=== PATIENT | female | born 1975 | race Caucasian/White ===

== ENCOUNTER 2017-11-07 09:50 | Emergency (ER) | payer OTHER, MEDICAID, SELFPAY ==
[2017-11-07 10:00] VITALS: BP 123/78; PULSE 102; RESP 20; TEMP 36.8; O2SAT 99
--- NOTE | 2017-11-07 10:03 | ED_ITS ---
HPI - Extremity Injury (Lower) General Chief Complaint: Extremity Injury, Lower Stated Complaint: left foot pain Time Seen by Provider: 11/07/17 10:03 Source: patient Mode of arrival: ambulatory Limitations: no limitations History of Present Illness HPI Narrative: Patient is a 42-year-old female with a known bone spur on her left heel. Has seen podiatry for this. Is scheduled for surgery later this month. Here for evaluation after she states that she ?stepped wrong ?on her left foot and since then has had pain on the bottom of her left foot that radiates up her left leg. Has not tried anything for prior to arrival. Does have lidocaine patches on her foot which she states is a daily medication for her. Related Data Home Medications Medication Instructions Recorded Confirmed alprazolam 1 tab PO DAILY PRN 11/07/17 11/07/17 brexpiprazole [Rexulti] 2 mg PO DAILY 11/07/17 11/07/17 carbamazepine 1 tab PO DAILY 11/07/17 11/07/17 dextroamphetamine-amphetamine 11/07/17 11/07/17 dextroamphetamine-amphetamine 30 mg PO QAM 11/07/17 11/07/17 divalproex 1 tab PO DAILY 11/07/17 11/07/17 divalproex 2 tab PO BEDTIME 11/07/17 11/07/17 etonogestrel-ethinyl estradiol 1 ea VAGINAL Q21D 11/07/17 11/07/17 [NuvaRing] levothyroxine 1 tab PO DAILY 11/07/17 11/07/17 losartan 1 tab PO DAILY 11/07/17 11/07/17 meloxicam 1 tab PO DAILY 11/07/17 11/07/17 omeprazole 2 cap PO DAILY 11/07/17 11/07/17 polyethylene glycol 3350 1 dose PO DAILY 11/07/17 11/07/17 trazodone 2 tab PO BEDTIME 11/07/17 11/07/17 valacyclovir 1 tab PO DAILY 11/07/17 11/07/17 Allergies Allergy/AdvReac Type Severity Reaction Status Date / Time codeine Allergy Unknown Unverified 06/11/17 12:31 hydrocodone Allergy Unknown Unverified 06/11/17 12:31 lamotrigine [From LAMICTAL] Allergy Unknown Unverified 06/11/17 12:31 propoxyphene Allergy Unknown Unverified 06/11/17 12:31 Review of Systems Constitutional Denies fever(s) Cardiovascular Denies chest pain and Denies dyspnea Respiratory Denies dyspnea Gastrointestinal Gastrointestinal: Denies abdominal pain Musculoskeletal Comments: Left foot pain Integumentary/Breasts Denies lesions and Denies rash Hematologic/Lymphatic Denies easy bleeding and Denies easy bruising COUNT INCLUDES THE [facility] Medical History Bone spur of left foot (Acute) Surgical History No pertinent past surgical history (Acute) Social History Smoking Status: Never smoker Exam Initial Vital Signs Initial Vital Signs: Vital Signs Temperature 98.3 F 11/07/17 10:00 Pulse Rate 102 H 11/07/17 10:00 Respiratory Rate 20 11/07/17 10:00 Blood Pressure 123/78 11/07/17 10:00 Pulse Oximetry 99 11/07/17 10:00 Const General: cooperative, healthy appearing, well developed, well groomed and No acute distress Orientation: alert, awake and oriented x3 HENRI Head: normal to inspection and normocephalic Resp Effort & Inspection: normal respiratory effort Skin Lesions: no lesions Rashes: no rashes Neuro General: alert and oriented x3 Other: Sensation intact to light touch left lower extremity Extrem Other: Left knee unremarkable Left lower leg unremarkable Left ankle unremarkable Tenderness to palpation the bottom left foot Psych Appearance: grossly normal and well kempt Course Orders Ordered: ED Orders 11/07/17 10:16 XR foot LT min 3V Stat Vital Signs - 8 hr 11/07/17 10:00 Temperature 98.3 F Pulse Rate 102 H Respiratory Rate 20 Blood Pressure 123/78 Pulse Oximetry 99 MDM - Extremity Injury (Lower) Imaging Data X-ray left foot: Radiologist's impression: PROCEDURE: XR FOOT LT MIN 3V INDICATIONS: pain after twisting this AM TECHNIQUE: 3 views of the foot were acquired. COMPARISON: None. FINDINGS: Bones: No fractures or dislocations. No suspicious bony lesions. Soft tissues: No tibiotalar joint effusion. Achilles tendon appears normal. IMPRESSION: No trauma found. Dictated by: Riley Gurrola M.D. on 11/07/2017 at 10:46 Approved by: Riley Gurrola M.D. on 11/07/2017 at 10:47 [facility] Narrative Medical decision making narrative: Patient is neurovascularly intact. No fractures on the x-ray. Does have follow up with her biology specialist. Will give crutches for comfort. No acute process was found. She was given return precautions. She expressed understanding and agreement with plan. Discharge Plan Departure Patient Disposition: Home Clinical Impression: Chronic pain in left foot Instructions: How to Use Crutches, How To Perform RICE (Rest, Ice, Compress, Elevate) Activity Restrictions/Additional Instructions: Keep all of your scheduled medical appointments. Keep her foot elevated and iced as much as possible. You can walk on your foot if needed but use the crutches for comfort. Return to the emergency department for any worsening symptoms. Prescriptions: No Action divalproex 250 mg tablet,delayed release (DR/EC) 2 tab PO BEDTIME RF: 0 divalproex 250 mg tablet,delayed release (DR/EC) 1 tab PO DAILY RF: 0 carbamazepine 100 mg tablet extended release 12 hr 1 tab PO DAILY RF: 0 valacyclovir 500 mg tablet 1 tab PO DAILY RF: 0 meloxicam 7.5 mg tablet 1 tab PO DAILY RF: 0 levothyroxine 88 mcg tablet 1 tab PO DAILY RF: 0 alprazolam 0.5 mg tablet 1 tab PO DAILY PRN (Reason: Anxiety) RF: 0 trazodone 100 mg tablet 2 tab PO BEDTIME RF: 0 losartan 25 mg tablet 1 tab PO DAILY RF: 0 omeprazole 20 mg capsule,delayed release(DR/EC) 2 cap PO DAILY RF: 0 dextroamphetamine-amphetamine 10 mg capsule,extended release 24hr RF: 0 dextroamphetamine-amphetamine 10 mg capsule,extended release 24hr 30 mg PO QAM RF: 0 polyethylene glycol 3350 17 gram/dose powder 1 dose PO DAILY RF: 0 etonogestrel-ethinyl estradiol [NuvaRing] 0.12-0.015 mg/24 hr ring 1 ea Vaginal Q21D RF: 0 brexpiprazole [Rexulti] 2 mg tablet 2 mg PO DAILY RF: 0 Stand Alone Forms: Work/School Restrictions
--- NOTE | 2017-11-07 10:16 | DI.RAD.S_ITS ---
PROCEDURE: XR FOOT LT MIN 3V INDICATIONS: pain after twisting this AM TECHNIQUE: 3 views of the foot were acquired. COMPARISON: None. FINDINGS: Bones: No fractures or dislocations. No suspicious bony lesions. Soft tissues: No tibiotalar joint effusion. Achilles tendon appears normal. IMPRESSION: No trauma found. Dictated by: Riley Gurrola M.D. on 11/07/2017 at 10:46 Approved by: Riley Gurrola M.D. on 11/07/2017 at 10:47
[2017-11-07 11:17] VITALS: BP 131/76; PULSE 84; RESP 16; O2SAT 100
== END 2017-11-07 11:31 | disposition home or self-care (01) ==
PROVIDERS: Emergency Provider Emergency Medicine
DX: M79.672 Pain in left foot (principal)
CPT/HCPCS: 73630; 99283

== ENCOUNTER → 2022-08-29 11:19 | Outpatient (CLI) | payer OTHER, SELFPAY ==
--- NOTE | 2022-08-29 | DI.MRI.S_ITS ---
PROCEDURE: MR ABDOMEN LIVER PROTOCOL INDICATIONS: Liver disease, unspecified. Biopsy of prior right liver mass with pathology result of hepatic adenoma. TECHNIQUE: Coronal HASTE, axial 2D FLASH in- and [id number]; axial breath-hold T2 FSE. Dynamic axial VIBE during the administration of contrast; post-contrast coronal VIBE or 2D FLASH with fat saturation from the hepatic dome to the iliac crests. Optional diffusion weighted imaging and ADC may be performed. COMPARISON: [facility], MR, MR ABDOMEN WITHOUT CONTRAST, 08/22/2021, 9:52. [facility], CT, CT BIOPSY LIVER, 09/26/2021, 8:51. FINDINGS: Lung bases: No pleural effusion. Liver: Redemonstrated mass at the posterior aspect of the right lobe measuring 3.5 x 3.4 cm (axial T2 haste series 4, image 18) previously 3.4 x 3.3 cm, not significantly changed in size, previously biopsied with result of hepatic adenoma. Microscopic lipid content appears decreased compared to the prior exam, unclear clinical significance. Solid organs: Gallbladder contains a large stone as before. Biliary system is non dilated. Pancreas is normal in morphology. Spleen is normal in size and enhancement. No adrenal nodules. Both kidneys demonstrate normal size and enhancement, without hydronephrosis. Nodes and vessels: No retroperitoneal or mesenteric adenopathy by size criteria. Aorta and inferior vena cava are normal in size. Bowel and peritoneum: Unenhanced bowel loops are normal in caliber. No free fluid. IMPRESSION: 1. No significant interval change in size of the previously demonstrated hepatic adenoma in hepatic segment 6. 2. Cholelithiasis. Dictated by: Rios Aleln M.D. on 08/30/2022 at 11:40 Approved by: Rios Allen M.D. on 08/30/2022 at 12:05
== END ==
PROVIDERS: PCP Nurse Practitioner Family; Referring Provider Internal Medicine Gastroenterology; Visit Provider Internal Medicine Gastroenterology
DX: D13.4 Benign neoplasm of liver (principal); K76.9 Liver disease, unspecified; K80.20 Calculus of gallbladder without cholecystitis without obstruction
CPT/HCPCS: 74183; A9579

== ENCOUNTER 2023-12-09 17:17 | Emergency (ER) | payer OTHER, SELFPAY ==
[2023-12-09] VITALS (12 sets, daily range): BP systolic 165–197; BP diastolic 76–96; PULSE 44–64; RESP 16–25; TEMP 36.3–36.9; O2SAT 94–100; BMI 36.8
--- NOTE | 2023-12-09 17:36 | EKG_ITS ---
[facility] [address] [address] Test Date: 2023-12-09 Pat Name: [facility] Department: 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
[2023-12-09 18:45] LABS: Add Manual Diff / Slide Review NO; Basophils Absolute Auto 0 /uL (0-100); Basophils Percent Auto 0.4 % (0-2); Eosinophils Absolute Auto 0 /uL (0-450); Hematocrit 35.8 % (36-46); Hemoglobin 11.8 g/dL (12.0-16.0); Lymphocytes Absolute Auto 1300 /uL (1100-4500); Lymphocytes Percent Auto 12.8 % (25-40); Mean Corpuscular Hemoglobin 28.6 PG (26-34); Mean Corpuscular Volume 86.5 fL (80-100); Monocytes Absolute Auto 400 /uL (0-900); Monocytes Percent Auto 3.4 % (3-14); Neutrophils Absolute Auto 8700 /uL (1500-7000); Neutrophils Percent Auto 83.4 % (50-75); Platelet Count 298 X10^3/uL (150-400); Red Blood Cell Count 4.14 X10^6/uL (4.0-5.2); Red Cell Distribution Width 15.1 % (11.6-14.8); White Blood Cell Count 10.4 X10^3/uL (4.5-11.0)
[2023-12-09 18:48] LABS: Alanine Aminotransferase 18 IU/L (<35); Albumin Globulin Ratio 1.4 (1.0-2.8); Alkaline Phosphatase 88 U/L (38-126); Aspartate Aminotransferase 23 IU/L (14-36); BUN Creatinine Ratio 20.2 (6-22); Bilirubin Total 0.4 mg/dL (0.2-1.3); Blood Urea Nitrogen 18 mg/dL (7-17); Calcium 9.4 mg/dL (8.4-10.2); Carbon Dioxide 25 mmol/L (22-32); Chloride 104 mmol/L (98-107); Estimated Glomerular Filt Rate > 60 mL/min (>60); Globulin 2.9 g/dL (1.7-4.1); Glucose 119 mg/dL (70-100); HEMOLYSIS < 15 (0-50); Lipase 36 U/L (23-300); Potassium 3.8 mmol/L (3.4-5.1); Sodium 137 mmol/L (137-145); Total Protein 6.9 g/dL (6.3-8.2)
[2023-12-09 21:59] LABS: RBC Urine 5-10/HPF (0-5/HPF); Urine Volume 10mL (spun)
[2023-12-09 22:00] LABS: Bacteria Urine None Seen; Mucus Urine 1+ (Negative); Squamous Epithelial Cell Urine 0-1 /HPF (0-5/HPF); WBC Urine 0-1/HPF (0-5/HPF)
--- NOTE | 2023-12-09 22:17 | ED.GENADULT ---
HPI - General Adult General Chief complaint: Abdominal Pain Stated complaint: Chest Pain Time Seen by Provider: 12/09/23 22:07 Source: patient, RN notes reviewed and old records reviewed Mode of arrival: Ambulatory Limitations: no limitations History of Present Illness HPI narrative: 48-year-old female history of GERD, hypothyroidism, hypertension, dyslipidemia who presents with complaint of chest and abdominal discomfort for the past 24 hours she describes a substernal running up and down without any radiation. States she has had episodes in the past. It is lasting about 24 hours. She states sometimes she can stave off and a tack by taking apple cider gummies, she was taken half a bottle but has not been helpful. She states this feels like her prior episodes of reflux. She denies any fevers or chills, denies any shortness of breath, she has had some nausea and vomiting with it. She states that has not atypical. Has a chronic constipation but takes MiraLax. Denies any urinary symptoms. No swelling of her extremities. Patient takes numerous, Adderall extended release, omeprazole she states was recently changed from 40 40 mg once daily to 20 mg b.i.d., levothyroxine, doxepin, losartan, Latuda, trazodone and polyethylene glycol for her constipation. States prior surgeries include a bone spur to her left foot and a torn meniscus in April. States she has reactions to [id number] yeast medications, codeine, hydrocodone, Lamictal and propoxyphene known. No tobacco, states she is decreased her alcohol intake recently. Uses marijuana no other recreational drugs. Follows with Dr. Kaye Vivar through [facility] gastroenterology. Follows with primary care with Brendon Plasencia. Related Data Home Medications Medication Instructions Recorded Confirmed alprazolam 0.5 mg tablet 1 tab PO DAILY PRN Anxiety 11/07/17 11/07/17 brexpiprazole 2 mg tablet 2 mg PO DAILY 11/07/17 11/07/17 dextroamphetamine-amphetamine ER 30 mg PO QAM 11/07/17 11/07/17 10 mg 24hr capsule,extend release divalproex 250 mg tablet,delayed 1 tab PO BEDTIME 11/07/17 11/07/17 release etonogestrel 0.12 mg-ethinyl 1 ea vaginal Q21D 11/07/17 11/07/17 estradiol 0.015 mg/24 hr vaginal ring levothyroxine 88 mcg tablet 1 tab PO DAILY 11/07/17 11/07/17 losartan 25 mg tablet 1 tab PO DAILY 11/07/17 11/07/17 meloxicam 7.5 mg tablet 1 tab PO DAILY 11/07/17 11/07/17 omeprazole 20 mg capsule,delayed 2 cap PO DAILY 11/07/17 11/07/17 release polyethylene glycol 3350 17 1 dose PO DAILY 11/07/17 11/07/17 gram/dose oral powder trazodone 100 mg tablet 2 tab PO BEDTIME 11/07/17 11/07/17 valacyclovir 500 mg tablet 1 tab PO DAILY 11/07/17 11/07/17 Allergies Allergy/AdvReac Type Severity Reaction Status Date / Time codeine Allergy Unknown Abdominal Verified 12/09/23 17:28 Pain hydrocodone Allergy Unknown ITCHING Verified 12/09/23 17:28 lamotrigine [From LAMICTAL] Allergy Unknown Verified 12/09/23 17:28 propoxyphene Allergy Unknown Rash Verified 12/09/23 17:28 Review of Systems Review of Systems ROS Unobtainable: All systems reviewed & are unremarkable except as noted in HPI and below Patient History Medical History (Updated 12/10/23 @ 00:22 by Renetta Hunter DO) Bone spur of left foot Surgical History No pertinent past surgical history Social History Smoking Status: Never smoker Smoking Status: Never smoker alcohol intake frequency: a few times a month Substance Use Type: marijuana Exam Narrative Exam Narrative: GENERAL: Alert and oriented x three, female in mild distress HEENT: Head normocephalic, atraumatic, EOMI, pupils reactive, face symmetric, moist mucous membranes NECK: Supple, full range of motion CARDIOVASCULAR: Regular rate and rhythm without murmurs, rubs or gallops. RESPIRATORY: Breath sounds equal bilaterally, no wheezes rales or rhonchi. ABDOMEN: Soft, mild epigastric tenderness, no right upper quadrant tenderness. Normoactive bowel sounds all 4 quadrants. No guarding or rebound, rigidity, no mass : No CVA tenderness EXTREMITIES: Normal range of motion, no clubbing or edema. Neurovascularly intact NEUROLOGICAL: Cranial nerves II through XII grossly intact. Moving all extremities SKIN: Warm, dry, no petechiae, no rashes or lesions. Initial Vital Signs Initial Vital Signs: Vital Signs Temperature 98.5 F 12/09/23 17:22 Pulse Rate 55 L 12/09/23 17:22 Respiratory Rate 16 12/09/23 17:22 Blood Pressure 185/96 H 12/09/23 17:22 Pulse Oximetry 100 12/09/23 17:22 Oxygen Delivery Method Room Air 12/09/23 17:22 Course Orders Ordered: ED Orders 12/09/23 21:13 Urine Culture Stat Urine Microscopic Stat Discontinued Medications Ketorolac Tromethamine (Ketorolac 30 Mg/Ml Vial) 15 mg IV NOW ONE Stop: 12/09/23 23:21 Last Admin: 12/09/23 23:30 Dose: 15 mg Documented By: TRAVIS Ondansetron HCl (Ondansetron 4 Mg/2 Ml Inj) 4 mg IV NOW PRN PRN Reason: Nausea And Vomiting Ondansetron HCl (Ondansetron 4 Mg Odt) 4 mg PO NOW PRN PRN Reason: Nausea And Vomiting Pantoprazole Sodium (Pantoprazole 40 Mg Vial) 40 mg IV NOW ONE Stop: 12/09/23 22:28 Last Admin: 12/09/23 22:38 Dose: 40 mg Documented By: TRAVIS Vital Signs Vital signs: Vital Signs - 8 hr 12/09/23 21:13 12/09/23 21:14 12/09/23 21:14 Temperature Pulse Rate 55 L 53 L Respiratory Rate 17 16 Blood Pressure 197/88 H Pulse Oximetry 100 100 12/09/23 21:30 12/09/23 21:30 12/09/23 22:00 Temperature Pulse Rate 49 L 54 L Respiratory Rate 22 22 Blood Pressure 177/84 H Pulse Oximetry 96 94 12/09/23 22:01 12/09/23 22:01 12/09/23 22:30 Temperature Pulse Rate 48 L 62 Respiratory Rate 21 20 Blood Pressure 182/85 H Pulse Oximetry 95 97 12/09/23 22:31 12/09/23 22:31 12/09/23 23:00 Temperature Pulse Rate 60 55 L Respiratory Rate 24 22 Blood Pressure 168/76 H Pulse Oximetry 95 97 12/09/23 23:00 12/09/23 23:30 12/09/23 23:31 Temperature Pulse Rate 59 L 44 L Respiratory Rate 25 H 23 Blood Pressure 165/79 H Pulse Oximetry 95 95 12/09/23 23:31 12/10/23 00:00 12/10/23 00:01 Temperature 97.6 F Pulse Rate 60 68 Respiratory Rate 22 23 Blood Pressure 172/81 H Pulse Oximetry 96 95 12/10/23 00:01 Temperature Pulse Rate Respiratory Rate Blood Pressure 154/74 H Pulse Oximetry Medical Decision Making Lab Data 12/09/23 18:15 12/09/23 18:15 Labs: Lab Results 12/09/23 12/09/23 Range/Units 18:15 21:13 WBC 10.4 (4.5-11.0) X10^3/uL RBC 4.14 (4.0-5.2) X10^6/uL Hgb 11.8 L (12.0-16.0) g/dL Hct 35.8 L (36-46) % MCV 86.5 (80-100) fL MCH 28.6 (26-34) PG MCHC 33.0 (30-36) % RDW 15.1 H (11.6-14.8) % Plt Count 298 (150-400) X10^3/uL Neut % (Auto) 83.4 H (50-75) % Lymph % (Auto) 12.8 L (25-40) % [place] % (Auto) 3.4 (3-14) % Eos % (Auto) 0.0 L (2-4) % Baso % (Auto) 0.4 (0-2) % Neut # (Auto) 8700 H (1221-1822) /uL Lymph # (Auto) 1300 (9652-0267) /uL [place] # (Auto) 400 (0-900) /uL Eos # (Auto) 0 (0-450) /uL Baso # (Auto) 0 (0-100) /uL Sodium 137 (137-145) mmol/L Potassium 3.8 (3.4-5.1) mmol/L Chloride 104 (98-107) mmol/L Carbon Dioxide 25 (22-32) mmol/L BUN 18 H (7-17) mg/dL Creatinine 0.89 (0.52-1.04) mg/dL Estimated GFR > 60 (>60) mL/min BUN/Creatinine Ratio 20.2 (6-22) Glucose 119 H (70-100) mg/dL Calcium 9.4 (8.4-10.2) mg/dL Total Bilirubin 0.4 (0.2-1.3) mg/dL AST 23 (14-36) IU/L ALT 18 (<35) IU/L Alkaline Phosphatase 88 (38-126) U/L Total Creatine Kinase 55 (30-135) U/L Troponin I < 0.012 (0.01-0.034) ng/mL Total Protein 6.9 (6.3-8.2) g/dL Albumin 4.0 (3.5-5.0) g/dL Globulin 2.9 (1.7-4.1) g/dL Albumin/Globulin Ratio 1.4 (1.0-2.8) Lipase 36 (23-300) U/L Urine RBC 5-10/hpf H (0-5/HPF) Urine WBC 0-1/hpf (0-5/HPF) Ur Squamous Epith Cells 0-1 /hpf (0-5/HPF) Urine Bacteria None seen (None) Urine Mucus 1+ H (Negative) Vol Urine Centrifuged 10ml (spun) Point of Care Testing Test Results Negative Urine Dip Bedside Urine Glucose Negative Bedside Urine Bilirubin - Negative Bedside Urine Ketone ++ 40 Urine Specific [place] 1.030 Bedside Urine Occult Blood + Bedside Urine pH 6.0 Bedside Urine Protein +/- 15 Bedside Urine Urobilinogen - Negative Bedside Urine Nitrite - Negative Bedside Urine Leukocytes - Negative Esterase Point of care testing: Point of Care Testing Test Results Negative Urine Dip Bedside Urine Glucose Negative Bedside Urine Bilirubin - Negative Bedside Urine Ketone ++ 40 Urine Specific [place] 1.030 Bedside Urine Occult Blood + Bedside Urine pH 6.0 Bedside Urine Protein +/- 15 Bedside Urine Urobilinogen - Negative Bedside Urine Nitrite - Negative Bedside Urine Leukocytes - Negative Esterase ECG Data Attestation: I personally reviewed and interpreted this ECG as follows: Interpretation: Sinus bradycardia rate of 52 NE 132 QRS is 76 QTC of 383. No acute ST elevation or depression noted. MDM Narrative Medical decision making narrative: 28-year-old female comes in with complaint of epigastric pain radiating to her chest and abdomen. States it is similar to her prior episodes has been going on for about 24 hours has not responded to her usual remedies. She states she often responds to Protonix and Zofran if vomiting. States she has not vomiting but would like to try the IV Protonix. Labs show normal chemistries BUN 18 creatinine 0.89 glucose of 119 LFTs are negative lipase is 36. Hematology shows a normal white count, hemoglobin 11.8 platelets of 298, no priors for comparison. Troponin is negative. Patient has had 24+ hours if symptoms with no acute EKG or troponin changes unlikely to be cardiac in origin. Urine is negative. Point of care urine shows ketones,, protein no nitrates or leukocyte esterase. Urine RBCs 5-10, urine white cells 0-1, squamous 0-1 1+ mucus. EKG shows sinus bradycardia no priors for comparison Patient states Protonix is often helpful she deferred the Zofran she has not feeling nauseated or have any additional vomiting at this time. On rechecked she is still uncomfortable we will try a dose of Toradol. After dose of Toradol patient feels improved in his requesting discharge home. Discharge Plan Departure Patient Disposition: Home Clinical Impression: Atypical chest pain Activity Restrictions/Additional Instructions: Please follow up for recheck. If you have new or worsening symptoms, lightheadedness or passing out, recurrent chest pain, persistent abdominal pain, persistent vomiting, black or bloody stools or other new or concerning changes please return to the emergency department. Prescriptions: No Action divalproex 250 mg tablet,delayed release (DR/EC) 1 tab PO BEDTIME valacyclovir 500 mg tablet 1 tab PO DAILY meloxicam 7.5 mg tablet 1 tab PO DAILY levothyroxine 88 mcg tablet 1 tab PO DAILY Patient Comments: TK 1 T PO QD alprazolam 0.5 mg tablet 1 tab PO DAILY PRN (Reason: Anxiety) Patient Comments: TK 1 T PO ONE TIME D IF NEEDED FOR ACUTE ANXIETY. trazodone 100 mg tablet 2 tab PO BEDTIME Patient Comments: TK 2 TS PO QHS losartan 25 mg tablet 1 tab PO DAILY omeprazole 20 mg capsule,delayed release(DR/EC) 2 cap PO DAILY Patient Comments: TK 2 CS PO QD BEFORE A MEAL dextroamphetamine-amphetamine 10 mg capsule,extended release 24hr 30 mg PO QAM Patient Comments: TK 3 CS PO QAM UTD FOR ADD. polyethylene glycol 3350 17 gram/dose powder 1 dose PO DAILY Patient Comments: DISSOLVE 34 GRAMS IN LIQUID UTD AND DRINK PO D etonogestrel-ethinyl estradiol [NuvaRing] 0.12-0.015 mg/24 hr ring 1 ea Vaginal Q21D Patient Comments: INSERT 1 RING INTRAVAGINALLY AND TAKE OUT AFTER 21 DAYS brexpiprazole [Rexulti] 2 mg tablet 2 mg PO DAILY Referrals: Zakia Plasencia ARNP [Primary Care Provider] - Stand Alone Forms: Patient Portal/API
[2023-12-09] MEDS: PANTOPRAZOLE 40 MG VIAL IV (22:38)
[2023-12-09 22:44] LABS: Creatine Kinase 55 U/L (30-135)
[2023-12-09 22:57] LABS: Troponin I < 0.012 ng/mL (0.01-0.034)
[2023-12-09] MEDS: KETOROLAC 30 MG/ML VIAL 15 MG IV (23:30)
[2023-12-10] VITALS: PULSE 60; RESP 22; O2SAT 96
[2023-12-10 00:01] VITALS: BP 154/74; PULSE 68; RESP 23; TEMP 36.4; O2SAT 95
== END 2023-12-10 00:34 | disposition home or self-care (01) ==
PROVIDERS: Emergency Medicine; Emergency Provider Emergency Medicine; PCP Nurse Practitioner Family
DX: R07.89 Other chest pain (principal)
CPT/HCPCS: 36415; 80053; 81003; 81015; 81025; 82550; 83690; 84484; 85025; 87086; 93005; 93010; 96374; 96375; 99283; 99284; J1885; J2470

== ENCOUNTER 2024-05-19 17:56 | Emergency (ER) | payer OTHER, SELFPAY ==
[2024-05-19] VITALS (17 sets, daily range): BP systolic 146–185; BP diastolic 72–88; PULSE 49–86; RESP 14–27; TEMP 36.7; O2SAT 95–99; BMI 37.5
--- NOTE | 2024-05-19 18:02 | EKG_ITS ---
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
--- NOTE | 2024-05-19 18:02 | DI.RAD.S_ITS ---
PROCEDURE: XR CHEST 1V INDICATIONS: chest pain TECHNIQUE: One view of the chest was acquired. COMPARISON: None. FINDINGS: Surgical changes and devices: None. Lungs and pleura: Lungs are clear. No pleural effusions or pneumothorax. Mediastinum: Mediastinal contours appear normal. Heart size is normal. Calcified left hilar lymph nodes. Bones and chest wall: No suspicious bony lesions. Overlying soft tissues appear unremarkable. IMPRESSION: No acute cardiopulmonary abnormality is seen. Dictated by: Heidi Arguelles M.D. on 05/19/2024 at 18:42 Approved by: Heidi Arguelles M.D. on 05/19/2024 at 18:42
[2024-05-19 18:12] LABS: Add Manual Diff / Slide Review NO; Basophils Absolute Auto 0 /uL (0-100); Basophils Percent Auto 0.3 % (0-2); Eosinophils Absolute Auto 0 /uL (0-450); Eosinophils Percent Auto 0.1 % (2-4); Hematocrit 33.8 % (36-46); Hemoglobin 10.8 g/dL (12.0-16.0); Lymphocytes Absolute Auto 1300 /uL (1100-4500); Lymphocytes Percent Auto 11.9 % (25-40); Mean Corpuscular HGB Conc 31.8 % (30-36); Mean Corpuscular Volume 81.6 fL (80-100); Monocytes Absolute Auto 300 /uL (0-900); Monocytes Percent Auto 2.8 % (3-14); Neutrophils Absolute Auto 9400 /uL (1500-7000); Neutrophils Percent Auto 84.9 % (50-75); Platelet Count 406 X10^3/uL (150-400); Red Blood Cell Count 4.14 X10^6/uL (4.0-5.2); Red Cell Distribution Width 15.8 % (11.6-14.8)
[2024-05-19 18:18] LABS: INR 0.9 (0.9-1.3); Prothrombin Time 10.4 SECONDS (9.4-12.5)
[2024-05-19 18:21] LABS: PTT Partial Thromboplastin Tim 32 SECONDS (25.1-36.5)
[2024-05-19 18:29] LABS: Alanine Aminotransferase 21 IU/L (<35); Albumin Globulin Ratio 1.3 (1.0-2.8); Alkaline Phosphatase 96 U/L (38-126); Aspartate Aminotransferase 25 IU/L (14-36); Bilirubin Total 0.3 mg/dL (0.2-1.3); Blood Urea Nitrogen 13 mg/dL (7-17); Calcium 9.4 mg/dL (8.4-10.2); Carbon Dioxide 24 mmol/L (22-32); Chloride 104 mmol/L (98-107); Creatine Kinase 55 U/L (30-135); Estimated Glomerular Filt Rate > 60 mL/min (>60); Globulin 3.2 g/dL (1.7-4.1); Glucose 129 mg/dL (70-100); HEMOLYSIS < 15 (0-50); Lipase 38 U/L (23-300); Magnesium 1.4 mg/dL (1.6-2.3); Sodium 135 mmol/L (137-145); Total Protein 7.2 g/dL (6.3-8.2)
[2024-05-19 18:40] LABS: NT-proBNP (BNP-Adult 18+) 221 pg/mL (<125); Troponin I < 0.012 ng/mL (0.01-0.034)
[2024-05-19] MEDS: ASPIRIN 81 MG CHEW TAB 324 MG PO (19:01)
--- NOTE | 2024-05-19 20:26 | ED.CHESTPAIN ---
HPI - Chest Pain General Chief Complaint: Chest Pain Stated Complaint: chest px Time Seen by Provider: 05/19/24 18:25 Source: patient Mode of arrival: Ambulatory Limitations: no limitations History of Present Illness HPI narrative: 48-year-old female with a past medical history of GERD, hypothyroidism, hypertension, hyperlipidemia presents to the emergency department from home for evaluation of chest pain. She states that the chest pain has been ongoing for the past 24 hours, states that she does have history of reflux says that it is slightly different than normal, states that she did try taking her omeprazole without any relief does not do some nausea and vomiting but otherwise not complaining of any other symptoms such as headache visual disturbances fever chills abdominal pain or any other GI/ symptoms at this time. To note patient states that she does have a history of esophageal spasming that she is currently in the process of getting things treated. She states that she is in the process of possibly getting Botox ingestions over in [facility], she does note that these symptoms have correlated with chest pain in the past and states that she has not sure whether it is her esophagus causing spasming or sheets actually causing pain in her heart/chest. She states that she did have an endoscopy over the past few months had dilation procedure for the 1st time at that time. Related Data Home Medications Medication Instructions Recorded Confirmed alprazolam 0.5 mg tablet 1 tab PO DAILY PRN Anxiety 11/07/17 11/07/17 brexpiprazole 2 mg tablet 2 mg PO DAILY 11/07/17 11/07/17 dextroamphetamine-amphetamine ER 30 mg PO QAM 11/07/17 11/07/17 10 mg 24hr capsule,extend release divalproex 250 mg tablet,delayed 1 tab PO BEDTIME 11/07/17 11/07/17 release etonogestrel 0.12 mg-ethinyl 1 ea vaginal Q21D 11/07/17 11/07/17 estradiol 0.015 mg/24 hr vaginal ring levothyroxine 88 mcg tablet 1 tab PO DAILY 11/07/17 11/07/17 losartan 25 mg tablet 1 tab PO DAILY 11/07/17 11/07/17 meloxicam 7.5 mg tablet 1 tab PO DAILY 11/07/17 11/07/17 omeprazole 20 mg capsule,delayed 2 cap PO DAILY 09/07/18 09/07/18 release polyethylene glycol 3350 17 1 dose PO DAILY 11/07/17 11/07/17 gram/dose oral powder trazodone 100 mg tablet 2 tab PO BEDTIME 11/07/17 11/07/17 valacyclovir 500 mg tablet 1 tab PO DAILY 11/07/17 11/07/17 Allergies Allergy/AdvReac Type Severity Reaction Status Date / Time codeine Allergy Unknown Abdominal Verified 05/19/24 18:03 Pain hydrocodone Allergy Unknown ITCHING Verified 05/19/24 18:03 lamotrigine [From LAMICTAL] Allergy Unknown Verified 05/19/24 18:03 propoxyphene Allergy Unknown Rash Verified 05/19/24 18:03 Review of Systems Review of Systems Narrative: General: Denies fever, chills, weight loss HEENT: Denies headache, eye drainage, eye irritation, head trauma, sore throat, voice change Cardiovascular: Positive chest pain, denies palpitations, tachycardia Respiratory: Denies any shortness of breath, cough, wheeze, stridor GI/: Denies any abdominal pain, nausea, vomiting, diarrhea, bright red blood per rectum, melanotic stools, urinary frequency, urinary retention, dysuria, hematuria MSK: Denies any joint pain, muscle pains, swelling Skin: Denies any rashes, lesions, discoloration Neuro: Denies any headache, lightheadedness, dizziness, fainting, weakness Psych: Denies SI/HI Patient History Medical History (Updated 05/19/24 @ 21:40 by Jean Marie Angelo DO) Bone spur of left foot Surgical History No pertinent past surgical history Social History Smoking Status: Never smoker Smoking Status: Never smoker alcohol intake frequency: a few times a month Exam Narrative Exam Narrative: General: Cooperative, comfortable, well-developed, not in acute distress HEENT: Normocephalic, atraumatic, PERRLA, normal sclera, eyelids normal, Neck: Active full range of motion, atraumatic Chest: Normal to inspection, negative crepitus, no overlying erythema ecchymosis Respiratory: Normal respiratory effort, not in acute respiratory distress, clear to auscultation bilaterally negative cough, wheeze, tachypnea, rhonchi, rales Cardiology: Regular rate rhythm negative gallop, murmur, rubs GI/: Normal to inspection, soft, nonrigid, no tenderness to palpation, exam deferred MSK: Full range of active range of motion of all 4 extremities, atraumatic Skin: No rashes lesions noted Neuro: Alert awake oriented x3, moves all 4 extremities spontaneously, cranial nerves intact, able to answer all questions appropriately follows commands appropriately Psych: Cooperative, negative suicidal or homicidal ideations Initial Vital Signs Initial Vital Signs: Vital Signs Temperature 98.0 F 05/19/24 17:58 Pulse Rate 86 05/19/24 17:58 Respiratory Rate 14 05/19/24 17:58 Blood Pressure 184/84 H 05/19/24 17:58 Pulse Oximetry 99 05/19/24 17:58 Oxygen Delivery Method Room Air 05/19/24 17:58 Course Orders Ordered: ED Orders 05/19/24 18:02 XR chest 1V Stat EKG-12 Lead Stat 05/19/24 18:04 Complete Blood Count AUTO DIFF Stat Comprehensive Metabolic Panel Stat Lipase Stat Magnesium Stat NT-proBNP (BNP-Adult 18+) Stat PTT Partial Thromboplastin Maycol Stat Prothrombin Time INR Stat Troponin & CK Cardiac Panel Stat 05/19/24 20:29 Trop I [Troponin I] Stat Discontinued Medications Aspirin (Aspirin 81 Mg Chew Tab) 324 mg PO NOW ONE Stop: 05/19/24 18:03 Last Admin: 05/19/24 19:01 Dose: 324 mg Documented By: CTS Al Hydrox/Mg Hydrox/Simethicone 20 ml/ Lidocaine HCl 15 ml 0 ml PO NOW ONE Stop: 05/19/24 20:18 Last Admin: 05/19/24 20:32 Dose: Not Given Documented By: [facility] Vital Signs Vital signs: Vital Signs - 8 hr 05/19/24 17:58 05/19/24 18:00 05/19/24 18:02 Temperature 98.0 F Pulse Rate 86 68 Respiratory Rate 14 22 Blood Pressure 184/84 H Pulse Oximetry 99 99 99 Oxygen Delivery Method Room Air 05/19/24 18:02 05/19/24 18:30 05/19/24 18:31 Temperature Pulse Rate 52 L Respiratory Rate 22 Blood Pressure 184/84 H 180/81 H Pulse Oximetry 98 Oxygen Delivery Method 05/19/24 18:31 05/19/24 19:00 05/19/24 19:01 Temperature Pulse Rate 57 L 53 L 81 Respiratory Rate 21 23 18 Blood Pressure Pulse Oximetry 97 97 96 Oxygen Delivery Method 05/19/24 19:01 05/19/24 19:30 05/19/24 19:31 Temperature Pulse Rate 49 L Respiratory Rate 20 Blood Pressure 179/83 H 164/72 H Pulse Oximetry 96 Oxygen Delivery Method 05/19/24 19:31 05/19/24 20:00 05/19/24 20:17 Temperature Pulse Rate 50 L 51 L Respiratory Rate 18 24 Blood Pressure 146/83 H Pulse Oximetry 96 96 Oxygen Delivery Method 05/19/24 20:17 05/19/24 20:30 05/19/24 20:31 Temperature Pulse Rate 60 59 L 67 Respiratory Rate 27 H 19 22 Blood Pressure Pulse Oximetry 96 97 96 Oxygen Delivery Method 05/19/24 20:31 05/19/24 21:00 05/19/24 21:01 Temperature Pulse Rate 50 L 52 L Respiratory Rate 20 23 Blood Pressure 174/81 H Pulse Oximetry 96 95 Oxygen Delivery Method 05/19/24 21:01 Temperature Pulse Rate Respiratory Rate Blood Pressure 177/84 H Pulse Oximetry Oxygen Delivery Method MDM - Chest Pain Differential Diagnosis Differential diagnosis: Likely pneumothorax, stable angina, st elevation myocardial infarction, costochondritis, chest pain and other (Pneumonia, electrolyte abnormality) Lab Data 05/19/24 18:04 05/19/24 18:04 Labs: Lab Results 05/19/24 05/19/24 Range/Units 18:04 20:29 WBC 11.0 (4.5-11.0) X10^3/uL RBC 4.14 (4.0-5.2) X10^6/uL Hgb 10.8 L (12.0-16.0) g/dL Hct 33.8 L (36-46) % MCV 81.6 (80-100) fL MCH 26.0 (26-34) PG MCHC 31.8 (30-36) % RDW 15.8 H (11.6-14.8) % Plt Count 406 H (150-400) X10^3/uL Neut % (Auto) 84.9 H (50-75) % Lymph % (Auto) 11.9 L (25-40) % [place] % (Auto) 2.8 L (3-14) % Eos % (Auto) 0.1 L (2-4) % Baso % (Auto) 0.3 (0-2) % Neut # (Auto) 9400 H (0679-3165) /uL Lymph # (Auto) 1300 (1915-5111) /uL [place] # (Auto) 300 (0-900) /uL Eos # (Auto) 0 (0-450) /uL Baso # (Auto) 0 (0-100) /uL PT 10.4 (9.4-12.5) SECONDS INR 0.9 (0.9-1.3) APTT 32 (25.1-36.5) SECONDS Sodium 135 L (137-145) mmol/L Potassium 4.0 (3.4-5.1) mmol/L Chloride 104 (98-107) mmol/L Carbon Dioxide 24 (22-32) mmol/L BUN 13 (7-17) mg/dL Creatinine 0.81 (0.52-1.04) mg/dL Estimated GFR > 60 (>60) mL/min BUN/Creatinine Ratio 16.0 (6-22) Glucose 129 H (70-100) mg/dL Calcium 9.4 (8.4-10.2) mg/dL Magnesium 1.4 L (1.6-2.3) mg/dL Total Bilirubin 0.3 (0.2-1.3) mg/dL AST 25 (14-36) IU/L ALT 21 (<35) IU/L Alkaline Phosphatase 96 (38-126) U/L Total Creatine Kinase 55 (30-135) U/L Troponin I < 0.012 < 0.012 (0.01-0.034) ng/mL NT-Pro-B Natriuret Pep 221 H (<125) pg/mL Total Protein 7.2 (6.3-8.2) g/dL Albumin 4.0 (3.5-5.0) g/dL Globulin 3.2 (1.7-4.1) g/dL Albumin/Globulin Ratio 1.3 (1.0-2.8) Lipase 38 (23-300) U/L Imaging Data Chest x-ray: Radiologist's Impression: [address] [address] XRay Report Signed Patient: Mely Dove MR#: [id number] : 1975 Acct:[id number] Age/Sex: 48 / F Date of Service: 05/19/24 Loc: ED Accession Number: [id number] Procedure: XR chest 1V Ordering Provider: Jean Marie Angelo D.O. PROCEDURE: XR CHEST 1V INDICATIONS: chest pain TECHNIQUE: One view of the chest was acquired. COMPARISON: None. FINDINGS: Surgical changes and devices: None. Lungs and pleura: Lungs are clear. No pleural effusions or pneumothorax. Mediastinum: Mediastinal contours appear normal. Heart size is normal. Calcified left hilar lymph nodes. Bones and chest wall: No suspicious bony lesions. Overlying soft tissues appear unremarkable. IMPRESSION: No acute cardiopulmonary abnormality is seen. ECG Data Interpretation: EKG interpreted by ED physician sinus bradycardia at 55 beats per minute QTC 405, normal axis nonspecific ST changes no STEMI MDM Narrative Medical decision making narrative: 48-year-old female past medical history of hypertension hypothyroidism hyperlipidemia GERD presenting for 24 hours of chest pain. Patient states that she also has a history of esophageal spasming states that the symptoms are similar to what she is experiencing however she states that it is normally started by specific foods and this time it started spontaneously therefore she was worried and came into the ED for further evaluation treatment. At time of evaluation patient asymptomatic, she states that the symptoms have improved after administration of medication here. Patient lab work without any leukocytosis Chem panel on unremarkable, troponin negative x2, EKG nonischemic in nature. Patient with heart score of 2. She was instructed follow up with her GI doctor and her educational therapy teacher in outpatient setting, she states that she is in the process of trying to get Botox for her esophageal spasming but it is in the next few months and it as at [facility]. She was given strict return precautions she verbalized understanding of this and agrees to being discharged home with outpatient follow up Discharge Plan Departure Patient Disposition: Home Clinical Impression: Chest pain Activity Restrictions/Additional Instructions: Please follow up with Cardiology and your rapid outsole stitcher Please read the discharge instructions sheet carefully and bring all papers to all doctor follow-up visits, as it may contain information that your doctor may want to see. Disease processes change and evolve, if your symptoms worsen or if you develop any new symptoms that are concerning to you please return for evaluation. Your evaluation today does not show any evidence of any life-threatening/serious illnesses requiring admission to the hospital or surgery. Please follow-up with your doctor for re-evaluation in approximately 1 day. Seek immediate medical attention for any worrisome symptoms. *If you do not have a primary care provider please contact the [facility] Resource line at [phone]. They will ask some questions about your medical history and help get you set up with a doctor in the community. Prescriptions: No Action divalproex 250 mg tablet,delayed release (DR/EC) 1 tab PO BEDTIME valacyclovir 500 mg tablet 1 tab PO DAILY meloxicam 7.5 mg tablet 1 tab PO DAILY levothyroxine 88 mcg tablet 1 tab PO DAILY Patient Comments: TK 1 T PO QD alprazolam 0.5 mg tablet 1 tab PO DAILY PRN (Reason: Anxiety) Patient Comments: TK 1 T PO ONE TIME D IF NEEDED FOR ACUTE ANXIETY. trazodone 100 mg tablet 2 tab PO BEDTIME Patient Comments: TK 2 TS PO QHS losartan 25 mg tablet 1 tab PO DAILY omeprazole 20 mg capsule,delayed release(DR/EC) 2 cap PO DAILY Patient Comments: TK 2 CS PO QD BEFORE A MEAL dextroamphetamine-amphetamine 10 mg capsule,extended release 24hr 30 mg PO QAM Patient Comments: TK 3 CS PO QAM UTD FOR ADD. polyethylene glycol 3350 17 gram/dose powder 1 dose PO DAILY Patient Comments: DISSOLVE 34 GRAMS IN LIQUID UTD AND DRINK PO D etonogestrel-ethinyl estradiol [NuvaRing] 0.12-0.015 mg/24 hr ring 1 ea Vaginal Q21D Patient Comments: INSERT 1 RING INTRAVAGINALLY AND TAKE OUT AFTER 21 DAYS brexpiprazole [Rexulti] 2 mg tablet 2 mg PO DAILY Referrals: Earl Cobb MD [Physician] - Zakia Plasencia ARNP [Primary Care Provider] - Stand Alone Forms: Patient Portal/API/Survey
[2024-05-19 21:26] LABS: Troponin I < 0.012 ng/mL (0.01-0.034)
== END 2024-05-19 21:57 | disposition home or self-care (01) ==
PROVIDERS: Emergency Provider Student in an Organized Health Care Education/Training Program; PCP Nurse Practitioner Family
DX: R07.9 Chest pain, unspecified (principal); R00.1 Bradycardia, unspecified
CPT/HCPCS: 36415; 71045; 80053; 82550; 83690; 83735; 83880; 84484; 85025; 85610; 85730; 93005; 99284